=== PATIENT | female | born 1975 | race Caucasian/White ===

== ENCOUNTER 2017-03-15 12:57 | Emergency (ER) | payer OTHER ==
[2017-03-15 16:20] VITALS: BP 120/64
== END 2017-03-15 16:20 | disposition home or self-care (01) ==
LOC: ED 12:57
DX: S72.431A Displaced fracture of medial condyle of right femur, initial encounter for closed fracture (principal); W17.89XA Other fall from one level to another, initial encounter; Y93.39 Activity, other involving climbing, rappelling and jumping off; Y92.89 Other specified places as the place of occurrence of the external cause; Y99.8 Other external cause status

== ENCOUNTER 2018-05-23 15:59 | Emergency (ER) | payer OTHER ==
[~2018-05-23] VITALS: Ht 162.6 cm; Wt 93.4 kg
[2018-05-23 16:03] VITALS: BP 104/77
== END 2018-05-23 16:59 | disposition home or self-care (01) ==
LOC: ED 15:59 → EDBD 15:59 → ED 16:59
DX: J20.9 Acute bronchitis, unspecified (principal)